=== PATIENT | female | born 1975 | race Caucasian/White ===

== ENCOUNTER 2024-06-12 06:56 | Day surgery (SDC) | payer OTHER ==
[~2024-06-12] VITALS: Ht 157.5 cm; Wt 58.5 kg
[2024-06-12] MEDS ORDERED: PROPOFOL 200 MG/20 ML VIAL IV ONE (07:27)
[2024-06-12] MEDS ORDERED: ROCURONIUM 50 MG/5 ML VIAL IV ONE (07:27)
[2024-06-12] MEDS ORDERED: fentaNYL citrate 0.05 MG/ML VIAL ONE ×2 (07:39→08:46)
[2024-06-12] MEDS ORDERED: MIDAZOLAM 2 MG/2 ML VIAL ONE (07:39)
[2024-06-12] MEDS ORDERED: ONDANSETRON 4 MG/2 ML VIAL ONE ×2 (07:58)
[2024-06-12] MEDS ORDERED: DEXAMETHASONE 4 MG/ML VIAL ONE ×2 (07:58)
[2024-06-12] MEDS: BUPIVACAINE-MPF 0.25% 30 ML VIAL INJ ONE (08:03)
[2024-06-12] MEDS: LIDOCAINE/EPI 1% 1:100000 20 ML VIAL INJ ONE (08:03)
[2024-06-12] MEDS ORDERED: ACETAMINOPHEN 100 ML IV ONE (08:17)
[2024-06-12] MEDS ORDERED: KETOROLAC 30 MG/ML VIAL ONE (09:07)
[2024-06-12] MEDS ORDERED: GLYCOPYRROLATE 0.2 MG/ML VIAL ONE ×3 (09:13)
[2024-06-12] MEDS ORDERED: NEOSTIGMINE 1:1000 10 MG/10 ML VIAL ONE (09:13)
== END 2024-06-12 12:50 | disposition home or self-care (01) ==
LOC: MDS 06:56 → MMU 06:56 → UNDOADMIN 06:56 → MMU 06:56 → EDSTATUS 07:30 → MDS 12:50
PROVIDERS: ATTEND Obstetrics & Gynecology
DX: N93.9 Abnormal uterine and vaginal bleeding, unspecified (principal); D25.9 Leiomyoma of uterus, unspecified; N85.00 Endometrial hyperplasia, unspecified; Z98.891 History of uterine scar from previous surgery
CPT/HCPCS: 36415; 86886; 86900; 86901; 93005; J0690; J1100; J1885; J2001; J2250; J2405; J2704; J2710; J3010; J3490; J7030; J7060